=== PATIENT | female | born 1985 | race Caucasian/White ===

== ENCOUNTER 2022-07-19 17:15 | Emergency (ER) | payer SELFPAY ==
[~2022-07-19] VITALS: Ht 160 cm; Wt 91.0 kg
[2022-07-19] MEDS ORDERED: SODIUM CHLORIDE 0.9% 1,000 ML IV ONE (20:30)
[2022-07-19] MEDS ORDERED: DIPHENHYDRAMINE 50MG/ML VIAL IV ONE (20:30)
[2022-07-19] MEDS ORDERED: PROCHLORPERAZINE 10MG/2ML VIAL IV PRN (20:30)
[2022-07-19 20:56] LABS: BASOPHILS % 0.3 % (0.0-2.0); EOSINOPHILS % 1.3 % (0.0-5.0); HEMATOCRIT. 39.5 % (36.0-48.0); HEMOGLOBIN. 13.5 g/dL (12.0-16.0); MEAN CORPUSCULAR HEMOGLOBIN 31.4 pg (28.0-32.0); MEAN CORPUSCULAR VOLUME 92.3 fL (81.0-99.0); MONOCYTES % 8.4 % (2.0-8.0); PLATELET 369 x1000/uL (130-400); RED BLOOD CELL COUNT 4.28 mill/uL (4.2-5.4); RED CELL DISTRIBUTION WIDTH 13.6 % (11.6-14.6)
[2022-07-19 21:02] LABS: CHLORIDE 102 mEq/L (98-107)
[2022-07-19 21:25] LABS: HCG SCREEN NEGATIVE
[2022-07-19 21:50] VITALS: BP 119/81
[2022-07-19] MEDS ORDERED: SUMA100T16 MT (22:54)
== END 2022-07-19 23:00 | disposition home or self-care (01) ==
LOC: EDBD 17:27 → ER 17:27
DX: G43.909 Migraine, unspecified, not intractable, without status migrainosus (principal); R25.2 Cramp and spasm
CPT/HCPCS: 36415; 70450; 80053; 81025; 84703; 85025; 96361; 96374; 96375; 99284; J1200; J7030